=== PATIENT | female | born 1950 | race Caucasian/White ===

== ENCOUNTER 2019-09-03 07:46 | Day surgery (SDC) | payer OTHER ==
[2019-09-02 15:11] VITALS: BMI 24.3
[2019-09-03 08:32] VITALS: TEMP 97.9
[2019-09-03 11:18] VITALS: BP 105/57; PULSE 68
--- NOTE | 2019-09-04 13:18 | PATH ---
Surgical Pathology Report Patient Name: KATHERINE PARIKH [facility]. Rec. #: [id number] /Age/Gender: 1950 (Age: 68) / F Account: [id number] Location: [facility]-ENDOSCOPY Taken: 09/03/2019 Received: 09/03/2019 Reported: 09/04/2019 Physicians: Alex Zavaleta M.D. Specimen(s) Received A: RECTAL POLYP B: TRANSVERSE COLON POLYP Clinical History Colon screening Postoperative diagnosis: Polyps Final Diagnosis A. RECTAL POLYP, BIOPSY: HYPERPLASTIC POLYP. B. TRANSVERSE COLON, POLYP, BIOPSY: HYPERPLASTIC POLYP. Electronically Signed Anupama Madison M.D. Gross Description A. Received in formalin, labeled "biopsy rectal polyp" is a mar, irregular portion of soft tissue measuring 0.3 cm. in greatest dimension. The specimen is submitted in toto in one cassette. B. Received in formalin, labeled "biopsy transverse colon polyp" is a mar, irregular portion of soft tissue measuring 0.2 cm. in greatest dimension. The specimen is submitted in toto in one cassette. 09/03/2019 saudi09/03/2019
== END 2019-09-03 11:35 | disposition home or self-care (01) ==
LOC: JASU-ENDO 07:46
PROVIDERS: ATTEND Internal Medicine Gastroenterology
PROC: 0DBL8ZX Excision of Transverse Colon, Via Natural or Artificial Opening Endoscopic, Diagnostic (ICD-10-PCS; 2019-09-03)
PROC: 0DBP8ZX Excision of Rectum, Via Natural or Artificial Opening Endoscopic, Diagnostic (ICD-10-PCS; principal; 2019-09-03 08:45)
DX: Z12.11 Encounter for screening for malignant neoplasm of colon (principal); D12.3 Benign neoplasm of transverse colon; K62.1 Rectal polyp; K64.8 Other hemorrhoids

== ENCOUNTER 2024-01-30 04:32 | Day surgery (SDC) | payer OTHER ==
[2024-01-28 12:08] VITALS: BMI 23.0
[2024-01-30 09:07] VITALS: TEMP 98.2
[2024-01-30 09:19] VITALS: RESP 18
[2024-01-30 09:33] VITALS: PULSE 73
[2024-01-30 11:01] VITALS: BP 136/67
== END 2024-01-30 11:00 | disposition home or self-care (01) ==
LOC: JASU-ENDO 04:32
PROVIDERS: ATTEND Internal Medicine Gastroenterology
PROC: 0DBL8ZX Excision of Transverse Colon, Via Natural or Artificial Opening Endoscopic, Diagnostic (ICD-10-PCS; 2024-01-30)
PROC: 0DBH8ZX Excision of Cecum, Via Natural or Artificial Opening Endoscopic, Diagnostic (ICD-10-PCS; 2024-01-30)
PROC: 0DB98ZX Excision of Duodenum, Via Natural or Artificial Opening Endoscopic, Diagnostic (ICD-10-PCS; 2024-01-30)
PROC: 0DB78ZX Excision of Stomach, Pylorus, Via Natural or Artificial Opening Endoscopic, Diagnostic (ICD-10-PCS; 2024-01-30)
PROC: 0DB68ZX Excision of Stomach, Via Natural or Artificial Opening Endoscopic, Diagnostic (ICD-10-PCS; 2024-01-30)
PROC: 0DB28ZX Excision of Middle Esophagus, Via Natural or Artificial Opening Endoscopic, Diagnostic (ICD-10-PCS; 2024-01-30)
PROC: 0DB48ZX Excision of Esophagogastric Junction, Via Natural or Artificial Opening Endoscopic, Diagnostic (ICD-10-PCS; 2024-01-30)
PROC: 0DBK8ZX Excision of Ascending Colon, Via Natural or Artificial Opening Endoscopic, Diagnostic (ICD-10-PCS; principal; 2024-01-30 09:00)
DX: Z12.11 Encounter for screening for malignant neoplasm of colon (principal); D12.0 Benign neoplasm of cecum; D12.2 Benign neoplasm of ascending colon; K63.5 Polyp of colon; K64.8 Other hemorrhoids; K57.30 Diverticulosis of large intestine without perforation or abscess without bleeding; K21.00 Gastro-esophageal reflux disease with esophagitis, without bleeding; K22.0 Achalasia of cardia; K29.50 Unspecified chronic gastritis without bleeding; K22.70 Barrett's esophagus without dysplasia; Z86.010 Personal history of colon polyps
CPT/HCPCS: 88305-TC; 88342-TC